=== PATIENT | male | born 1990 | race Hispanic/Latino ===

== ENCOUNTER 2016-12-12 21:23 | Emergency (ER) | payer OTHER ==
[2016-12-13] MEDS ORDERED: ROXICODONE PO ONE (00:21)
[2016-12-13] MEDS ORDERED: MOTRIN PO ONE (00:21)
--- NOTE | 2016-12-13 00:22 | Emergency Department Report ---
ED General Adult HPI - General Chief complaint: Dental/Oral Stated complaint: CHIPPED TOOTH/TOOTHACHE Time Seen by Provider: 12/13/16 00:33 Source: patient Mode of arrival: Ambulatory Limitations: No Limitations - History of Present Illness Initial comments: This is a 26-year-old male. He is previously unknown to me. He presents to the ER with dental pain. He reports that he chipped tooth #8 just prior to arrival. No headache, neck pain, chest pain, abdominal pain or shortness of breath. Mild discomfort on the top of the tooth. There is no laxity to the tooth. -: Gradual Location: mouth Radiation: non-radiation Quality: aching Consistency: intermittent Improves with: rest Worsens with: eating, movement Associated Symptoms: denies other symptoms - Related Data Previous Rx's Medication Instructions Recorded Last Taken Type Chlorhexidine Mouthwash [Peridex] 15 ml MM BID #1 bottle 12/13/16 Unknown Rx Ibuprofen [Motrin] 600 mg PO Q8H PRN #30 tablet 12/13/16 Unknown Rx oxyCODONE [Roxicodone] 5 mg PO Q6HR PRN #15 tablet 12/13/16 Unknown Rx Allergies Allergy/AdvReac Type Severity Reaction Status Date / Time No Known Allergies Allergy Verified 12/12/16 21:57 ED Review of Systems ROS: Stated complaint: CHIPPED TOOTH/TOOTHACHE Other details as noted in HPI Constitutional: denies: fever Eyes: denies: vision change ENT: as per HPI. denies: epistaxis Respiratory: denies: cough Cardiovascular: denies: chest pain Gastrointestinal: denies: abdominal pain Genitourinary: as per HPI Musculoskeletal: as per HPI Skin: as per HPI Neurological: as per HPI Psychiatric: as per HPI Hematological/Lymphatic: as per HPI ED Past Medical Hx - Past Medical History Previous Medical History?: No - Surgical History Past Surgical History?: No - Social History Smoking Status: Never Smoker Substance Use Type: Alcohol - Medications Home Medications: Home Medications Medication Instructions Recorded Confirmed Last Taken Type Chlorhexidine Mouthwash [Peridex] 15 ml MM BID #1 bottle 12/13/16 Unknown Rx Ibuprofen [Motrin] 600 mg PO Q8H PRN #30 tablet 12/13/16 Unknown Rx oxyCODONE [Roxicodone] 5 mg PO Q6HR PRN #15 tablet 12/13/16 Unknown Rx ED Physical Exam - General Limitations: No Limitations General appearance: alert, in no apparent distress - Head Head exam: Present: atraumatic, normocephalic - Eye Eye exam: Present: normal appearance, PERRL, EOMI, other. Absent: nystagmus - ENT ENT exam: Present: normal exam, normal orophraynx, mucous membranes moist, normal external ear exam, other (there is a partial fracture through tooth #8. There is no laxity. There is no intrusion. There is no stridor, dysphonia, malocclusion or trismus.) - Neck Neck exam: Present: normal inspection, full ROM. Absent: tenderness, meningismus - Respiratory Respiratory exam: Present: normal lung sounds bilaterally. Absent: respiratory distress, wheezes, rales, rhonchi, stridor, chest wall tenderness, accessory muscle use, decreased breath sounds, prolonged expiratory - Cardiovascular Cardiovascular Exam: Present: regular rate, normal rhythm, normal heart sounds. Absent: bradycardia, tachycardia, irregular rhythm, systolic murmur, diastolic murmur, rubs, gallop - GI/Abdominal GI/Abdominal exam: Present: soft, normal bowel sounds. Absent: distended, tenderness, guarding, rebound, rigid, pulsatile mass - Rectal Rectal exam: Present: deferred - Extremities Exam Extremities exam: Present: normal inspection, full ROM, normal capillary refill. Absent: tenderness, pedal edema, joint swelling, calf tenderness - Back Exam Back exam: Present: normal inspection, full ROM. Absent: tenderness, CVA tenderness (R), CVA tenderness (L), muscle spasm, paraspinal tenderness, vertebral tenderness - Neurological Exam Neurological exam: Present: alert, oriented X3, normal gait, other (Extraocular movements intact. Tongue midline. No facial droop. Facial sensation intact to light touch in the V1, V2, V3 distribution bilaterally. 5 and 5 strength in 4 extremities.. Sensation is intact to light touch in 4 extremities.). Absent : motor sensory deficit - Psychiatric Psychiatric exam: Present: normal affect, normal mood - Skin Skin exam: Present: warm, dry, intact, normal color. Absent: rash ED Course Vital Signs 12/12/16 21:58 Temperature 98.6 F Pulse Rate 69 Respiratory 20 Rate Blood Pressure 115/77 O2 Sat by Pulse 100 Oximetry - Reevaluation(s) Reevaluation #1: 12/13/16 00:34 Assessment and plan: 26-year-old male with simple dental fracture. He is afebrile with reassuring vital signs. He needs to follow up with a dentist. He does not require emergent transfer or emergent intervention at this time. He will be discharged with pain medication, and chlorhexidine mouthwash. In addition, I have given the patient a listing of the low-cost dental clinics in the [facility]. ED Medical Decision Making - Lab Data Vital Signs 12/12/16 21:58 Temperature 98.6 F Pulse Rate 69 Respiratory 20 Rate Blood Pressure 115/77 O2 Sat by Pulse 100 Oximetry Critical care attestation.: If time is entered above; I have spent that time in minutes in the direct care of this critically ill patient, excluding procedure time. ED Disposition Clinical Impression: Dentalgia Disposition: DISCHARGED TO HOME OR SELFCARE Is pt being admited?: No Does the pt Need Aspirin: No Condition: Stable Instructions: Acute dental trauma (ED), Toothache (ED) Additional Instructions: Follow-up with the dentist within the next week. The tooth will likely need to be bonded. Avoid consumption of heavy foods, cold foods, hot foods. Return to the ER right away with fevers or chills, chest pain or shortness of breath, inability to tolerate liquid feeds, new, worsening or different symptoms. For your convenience, I have given you a printout of the local dental clinics in [place] which are considered low cost. Prescriptions: Chlorhexidine Mouthwash [Peridex] 15 ml MM BID #1 bottle Ibuprofen [Motrin] 600 mg PO Q8H PRN #30 tablet PRN Reason: Pain oxyCODONE [Roxicodone] 5 mg PO Q6HR PRN #15 tablet PRN Reason: Pain Referrals: [facility] [Outside] - 3-5 Days [facility] [Outside] - 3-5 Days
[2016-12-13 01:11] VITALS: BP 128/70
== END 2016-12-13 01:11 | disposition home or self-care (01) ==
LOC: ED 21:23
DX: K08.89 Other specified disorders of teeth and supporting structures (principal)
CPT/HCPCS: 99282